=== PATIENT | female | born 1990 | race Caucasian/White ===

== ENCOUNTER 2024-12-18 17:26 | Emergency (ER) | payer BC ==
[2024-12-18] MEDS: Rabies Vaccine (Avian) 2.5 Unit Inj Kit IM ONE ×2 (20:43→20:44)
== END 2024-12-18 21:06 | disposition home or self-care (01) ==
LOC: MW.ED 17:26
DX: Z23 Encounter for immunization (principal)
CPT/HCPCS: 90471; 90675; 99281-25